=== PATIENT | male | born 1965 | race American Indian/Alaskan Native ===

== ENCOUNTER 2021-12-08 08:40 | Day surgery (SDC) | payer BC, OTHER ==
[~2021-12-08 08:40] MED LIST: SODIUM CHLORIDE 0.9% 1000 ML 1,000 ML IV SCH
--- NOTE | 2021-12-08 09:57 | Anesthesia Day of Surgery ---
Anesthesia Day of Surgery - Day of Surgery Patient Examined: Yes Patient H&P Reviewed: Yes Patient is NPO: Yes
--- NOTE | 2021-12-08 09:57 | Anesthesia Consultation ---
Anesthesia Consult and Med Hx Date of service: 12/08/21 - Airway Anesthetic Teeth Evaluation: Dentures, Edentulous ROM Head & Neck: Adequate Mental/Hyoid Distance: Adequate Mallampati Class: Class II Intubation Access Assessment: Good - Pre-Operative Health Status ASA Pre-Surgery Classification: ASA3 Proposed Anesthetic Plan: MAC - Pulmonary Hx Smoking: No Hx Sleep Apnea: No (Pt denies) - Cardiovascular System Hx Hypertension: Yes - Gastrointestinal Hx Gastroesophageal Reflux Disease: No - Hematic Hx Sickle Cell Disease: No - Other Systems Hx Obesity: Yes
[2021-12-08] MEDS ORDERED: LIDOCAINE MPF (2%) 20 MG/1 ML VIAL 5 ML ONE ×2 (10:34→10:49)
[2021-12-08] MEDS ORDERED: propofoL 200 MG/20 ML VIAL IV ONE (10:34)
[2021-12-08] MEDS ORDERED: MIDAZOLAM 2 MG/2 ML INJ ONE (10:38)
--- NOTE | 2021-12-08 10:57 | Procedure Note ---
Date of procedure: 12/08/21 Pre-op diagnosis: Epigastric Pain/ Dyspepsia/ Positive by Serology for H.pylori Post-op diagnosis: other (Mild, Yuki Esophagitis/ Mild to Moderate, Erosive Esophagitis/ Gastritis/ No Peptic Ulcer Disease noted/ R/O celiac disease) Anesthesia: [facility] [place] Surgeon: SHERLY GRANDE Estimated blood loss: minimal Pathology: list Specimen disposition: to lab Condition: stable Disposition: same day (Treat with Fluconaole and PPI; avoid aspirin and NSAID for 4 days, otherwise resume home medication and F/U in 1 to 2 weeks ([phone]).)
--- NOTE | 2021-12-08 12:02 | Operative Report ---
DATE OF SURGERY: 12/08/2021 PROCEDURE: EGD with biopsy. INDICATIONS: This is a 56-year-old morbidly obese -[place] gentleman who has been having epigastric and dyspeptic pain. He has been noted to be positive by serology for H. pylori. EGD was done to make sure there was not any associated peptic ulcer disease or any significant upper GI pathology present. DESCRIPTION OF PROCEDURE: Procedure was done after getting informed consent with MAC anesthesia. The instrument was passed through the hypopharynx into the esophagus, which showed [id number] distal erosive esophagitis. Photodocumentation and biopsy was done to assess for the severity of the erosive esophagitis. The stomach also showed evidence of mild Yuki esophagitis and biopsy was done from the mid-esophagus to assess for Yuki esophagitis. The stomach showed gastritis. No ulcers were noted in the straight or the retroverted view. The pylorus was patent. The duodenum in the first and second portion appeared normal. A biopsy was done from the second part to rule out for possible celiac disease. Additional biopsy was done from the gastric antrum, gastric body and angular incisura to rule out for H. pylori and atrophic gastritis with minimal bleeding. ASSESSMENT: Epigastric pain, dyspepsia. No peptic ulcer disease noted. [id number] distal erosive esophagitis, mild Yuki esophagitis, gastritis, history of positive serology for H. pylori, rule out celiac disease. PLAN: To treat the patient with fluconazole as well as PPI. Have the patient avoid aspirin and aspirin-related products for the next few days. Follow up in the office in 1-2 weeks' time. If the patient is positive for H. pylori, the patient will be treated for that. Procedure was done in the GI lab with assistance of the GI lab team, which included the GI nurse, the surgery technician and with the assistance of anesthesia. TID: [id number] RECEIPT: [id number] KHADRA/JENNIFER
--- NOTE | 2021-12-08 16:57 | Post Anesthesia Evaluation ---
- Post Anesthesia Evaluation Patient Participated: Yes Airway Patent: Yes Stable Respiratory Function: Yes Nausea/Vomiting: No Temp > 96.8F: Yes Pain Manageable: Yes Adequeate Hydration: Yes Anesthesia Complications: No Block Receding Appropriately: Not Applicable Patient on Ventilator: No
[2021-12-08 18:28] VITALS: BP 145/86
== END 2021-12-08 08:41 | disposition home or self-care (01) ==
LOC: GIO 08:40
DX: R10.13 Epigastric pain (principal); K29.70 Gastritis, unspecified, without bleeding; K31.89 Other diseases of stomach and duodenum; K20.80 Other esophagitis without bleeding; I10 Essential (primary) hypertension; E66.9 Obesity, unspecified; Z68.42 Body mass index [BMI] 45.0-49.9, adult; Z79.899 Other long term (current) drug therapy
CPT/HCPCS: 43239; 82962; 88305; 88312; 88342; J2250; J2704; J3490; J7030; J7120; Q0162

== ENCOUNTER 2022-04-13 07:57 | Day surgery (SDC) | payer OTHER ==
[2022-04-13] MEDS ORDERED: propofoL 200 MG/20 ML VIAL IV ONE ×2 (08:15)
--- NOTE | 2022-04-13 08:27 | Anesthesia Consultation ---
Anesthesia Consult and Med Hx Date of service: 04/13/22 - Airway Anesthetic Teeth Evaluation: Crowns ROM Head & Neck: Adequate Mental/Hyoid Distance: Adequate Mallampati Class: Class II Intubation Access Assessment: Possibly Difficult - Pulmonary Exam CTA: Yes - Cardiac Exam Cardiac Exam: RRR - Pre-Operative Health Status ASA Pre-Surgery Classification: ASA3 Proposed Anesthetic Plan: MAC - Pulmonary Hx Smoking: Yes (6 a day) Hx Respiratory Symptoms: No Hx Sleep Apnea: No (Pt denies) - Cardiovascular System Hx Hypertension: Yes (No medications this morning) Hx Cardia Arrhythmia: No - Central Nervous System Hx Neuromuscular Disorder: No - Gastrointestinal Hx Gastroesophageal Reflux Disease: Yes (depends on what he eats; no medication) - Endocrine Hx Renal Disease: No Hx Liver Disease: No Hx Insulin Dependent Diabetes: No Hx Non-Insulin Dependent Diabetes: No Hx Thyroid Disease: No - Hematic Hx Sickle Cell Disease: No - Other Systems Hx Obesity: Yes (BMI 52) - Additional Comments Anesthesia Medical History Comments: No h/o GAC. No FHAC.
--- NOTE | 2022-04-13 08:33 | Anesthesia Day of Surgery ---
Anesthesia Day of Surgery - Day of Surgery Patient Examined: Yes Patient H&P Reviewed: Yes Patient is NPO: Yes
--- NOTE | 2022-04-13 10:21 | Procedure Note ---
Date of procedure: 04/13/22 Pre-op diagnosis: Colon Polyp Screening and P/H/O Colon Polp (Tubular adenoma) Post-op diagnosis: other (Multiple,Small Rectosigmoid polyps/ Extensive,scattered Diverticular Disease/Minor,Internal Hemorrhoids) Procedure: Colonoscopy with Cold Snare Polypectomy and Cold Biopsy Anesthesia: [facility] [place] Surgeon: SHERLY GRANDE Estimated blood loss: minimal Pathology: list Specimen disposition: to lab Condition: stable Disposition: same day (Encourage fiber intake; avoid aspirin and NSAID for 5 days, otherwise resume previous medicaion and F/U in 1 to 2 weeks ([phone]).)
--- NOTE | 2022-04-13 10:41 | Operative Report ---
DATE OF SURGERY: 04/13/2022 PROCEDURE PERFORMED: Colonoscopy. INDICATIONS: This is a 57-year-old -[place] gentleman who has a prior history of colon polyp of the tubular adenoma type. Repeat colonoscopy was done to make sure that there was not any recurrence of any polyps. DESCRIPTION OF PROCEDURE: Procedure was done after getting informed consent with MAC anesthesia. Initial rectal examination was unremarkable. The instrument was passed through the rectum onto the cecum, which was identified with ileocecal valve and appendiceal orifice. Visualization was fair to good. There was a slight drop in his heart rate during the middle of the procedure, but the patient's heart rate then came back with treatment from anesthesia. There were scattered diverticula noted throughout the colon. There were a few diverticula in the proximal and the transverse colon and moderate diverticula in the left colon and the patient had multiple small rectosigmoid polyps, a few of which were removed by cold snare polypectomy and the others by cold biopsy and these were retrieved and the rectum showed some minor internal hemorrhoid on the retroverted view. There was minimal bleeding associated with the procedure. No complications associated with the procedure. ASSESSMENT: Colon polyp screening, history of colon polyps of the tubular adenoma type, multiple small rectosigmoid polyps removed by cold snare polypectomy and with cold biopsy, extensive scattered diverticula, and minor internal hemorrhoid. PLAN: To encourage the patient to take fiber supplements, avoid aspirin and aspirin-related products for the next few days, otherwise resume previous medication and follow up in the office in 1-2 weeks' time. Procedure was done in the GI lab with assistance of the GI lab team, which included the GI nurse, the chemical research technician and with the assistance of anesthesia. TID: [id number] RECEIPT: [id number] KHADRA/HUGO
[2022-04-13 16:27] VITALS: BP 131/76
== END 2022-04-13 10:45 | disposition home or self-care (01) ==
LOC: GIO 07:57
DX: Z12.11 Encounter for screening for malignant neoplasm of colon (principal); K63.5 Polyp of colon; K64.8 Other hemorrhoids; K57.30 Diverticulosis of large intestine without perforation or abscess without bleeding; K29.70 Gastritis, unspecified, without bleeding; K21.00 Gastro-esophageal reflux disease with esophagitis, without bleeding; I10 Essential (primary) hypertension; E66.9 Obesity, unspecified; F17.210 Nicotine dependence, cigarettes, uncomplicated; Z80.8 Family history of malignant neoplasm of other organs or systems; Z86.010 Personal history of colon polyps; Z79.899 Other long term (current) drug therapy; Z98.890 Other specified postprocedural states; Z68.43 Body mass index [BMI] 50.0-59.9, adult
CPT/HCPCS: 45380; 45385; 88305; J2704; J7030